=== PATIENT | male | born 1990 | race American Indian/Alaskan Native ===

== ENCOUNTER 2018-02-01 11:04 | Emergency (ER) | payer OTHER ==
[2018-02-01 11:13] VITALS: BP 142/88
[2018-02-01] MEDS ORDERED: TORADOL IM ONE (11:37)
--- NOTE | 2018-02-01 11:47 | Emergency Department Report ---
ED Back Pain/Injury HPI - General Chief Complaint: Fall Stated Complaint: BACK PAIN Time Seen by Provider: 02/01/18 11:21 Source: patient Limitations: No Limitations - History of Present Illness Initial Comments: This is a 27-year-old male nontoxic, well nourished in appearance, no acute signs of distress presents to the ED with c/o of low back pain 1 day. Patient stated he had a about 15 feet fall from a ladder while he was changing and cleaning his gutters. He stated he landed on his sacrum/lumbar spine region. Patient denies any other trauma. Patient denies any head injury, loss consciousness, bladder or bowel stability fever, chills, nausea, vomiting, headache or stiff neck. Patient distressed pain as aching with level of 10. She stated that he had very minimal pain but this morning increase and this is the reason why he came to the ER. Patient denies any radiation of pain. Denies any allergies or significant past medical history MD Complaint: back pain, fall -: Last night Similar Symptoms Previously: No Place: home Radiation: none Severity: mild Severity scale (0 -10): 8 Quality: aching Consistency: constant Improves With: immobilization, supine, sitting upright Worsens With: movement, walking Context: fall Associated Symptoms: denies other symptoms. denies: confusion, weakness, chest pain, numbness, difficulty walking, cough, difficulty urinating, diaphoresis, incontinence, fever/chills, constipation, headaches, abdominal pain, loss of appetite, malaise, nausea/vomiting, rash, seizure, shortness of breath, syncope - Related Data Previous Rx's Medication Instructions Recorded Last Taken Type Ibuprofen [Motrin] 600 mg PO Q6H PRN #20 tablet 02/21/14 Unknown Rx Ibuprofen [Motrin] 800 mg PO Q8HR PRN #21 tablet 09/19/16 Unknown Rx Sulfamethoxazole/Trimethoprim 1 each PO BID #10 tablet 09/19/16 Unknown Rx [Bactrim DS TAB] Cyclobenzaprine [Flexeril] 10 mg PO QHS PRN #7 tablet 02/01/18 Unknown Rx Ibuprofen [Motrin] 600 mg PO Q8H PRN #30 tablet 02/01/18 Unknown Rx Allergies Allergy/AdvReac Type Severity Reaction Status Date / Time No Known Allergies Allergy Unverified 02/21/14 11:32 ED Review of Systems ROS: Stated complaint: BACK PAIN Other details as noted in HPI Constitutional: denies: chills, fever Eyes: denies: eye pain, eye discharge, vision change ENT: denies: ear pain, throat pain Respiratory: denies: cough, shortness of breath, wheezing Cardiovascular: denies: chest pain, palpitations Endocrine: no symptoms reported Gastrointestinal: denies: abdominal pain, nausea, diarrhea Genitourinary: denies: urgency, dysuria Musculoskeletal: back pain. denies: joint swelling, arthralgia Skin: denies: rash, lesions Neurological: denies: headache, weakness, paresthesias Psychiatric: denies: anxiety, depression Hematological/Lymphatic: denies: easy bleeding, easy bruising ED Past Medical Hx - Past Medical History Previous Medical History?: Yes Additional medical history: left shoulder injury - Surgical History Past Surgical History?: No - Social History Smoking Status: Current Every Day Smoker - Medications Home Medications: Home Medications Medication Instructions Recorded Confirmed Last Taken Type Ibuprofen [Motrin] 600 mg PO Q6H PRN #20 tablet 02/21/14 Unknown Rx Ibuprofen [Motrin] 800 mg PO Q8HR PRN #21 tablet 09/19/16 Unknown Rx Sulfamethoxazole/Trimethoprim 1 each PO BID #10 tablet 09/19/16 Unknown Rx [Bactrim DS TAB] Cyclobenzaprine [Flexeril] 10 mg PO QHS PRN #7 tablet 02/01/18 Unknown Rx Ibuprofen [Motrin] 600 mg PO Q8H PRN #30 tablet 02/01/18 Unknown Rx ED Physical Exam - General Limitations: No Limitations General appearance: alert, in no apparent distress - Head Head exam: Present: atraumatic, normocephalic - Eye Eye exam: Present: normal appearance Pupils: Present: normal accommodation - ENT ENT exam: Present: normal exam, mucous membranes moist - Neck Neck exam: Present: normal inspection, full ROM. Absent: tenderness, meningismus, lymphadenopathy - Respiratory Respiratory exam: Present: normal lung sounds bilaterally. Absent: respiratory distress, wheezes, rales, rhonchi, stridor, chest wall tenderness, accessory muscle use, decreased breath sounds, prolonged expiratory - Cardiovascular Cardiovascular Exam: Present: regular rate, normal rhythm, normal heart sounds. Absent: irregular rhythm, systolic murmur, diastolic murmur, rubs, gallop - GI/Abdominal GI/Abdominal exam: Present: soft, normal bowel sounds - Rectal Rectal exam: Present: deferred - Extremities Exam Extremities exam: Present: normal inspection, full ROM, normal capillary refill. Absent: tenderness - Back Exam Back exam: Present: normal inspection, full ROM, paraspinal tenderness (lumbar spinal region). Absent: tenderness, CVA tenderness (R), CVA tenderness (L), muscle spasm, vertebral tenderness, rash noted - Expanded Back Exam Expanded Back exam: Absent: saddle anesthesia Back exam: Negative Straight Leg Raising: Left, Right - Neurological Exam Neurological exam: Present: alert, oriented X3, normal gait - Psychiatric Psychiatric exam: Present: normal affect, normal mood - Skin Skin exam: Present: warm, dry, intact, normal color. Absent: rash ED Course Vital Signs 02/01/18 11:09 Temperature 98.2 F Pulse Rate 70 Respiratory 16 Rate Blood Pressure 142/88 O2 Sat by Pulse 100 Oximetry - Reevaluation(s) Reevaluation #1: 02/01/18 11:49 Patient is speaking in full sentences with no signs of distress noted. ED Medical Decision Making - Medical Decision Making This is a 27-year-old male that presents with low back strain status post fall. Patient is stable and was examined by me. X-ray has been obtained and dictated by the radiologist within normal limits. Patient is notified of the x- ray results, questionable by the patient. Patient received Toradol 30 mg IM in the ED which paced his symptoms as resolved and subsided. There is no signs of any cauda equina syndrome. Patient is discharged with Flexeril and Motrin and was instructed not to operate any machinery while taking Flexeril due to drowsiness. Patient was referred to Follow-up with a primary care doctor in 3- 5 days or if symptoms worsen and continue return to emergency room as soon as possible. At time of discharge, the patient does not seem toxic or ill in appearance. No acute signs of distress noted. Patient agrees to discharge treatment plan of care. No further questions noted by the patient. Critical care attestation.: If time is entered above; I have spent that time in minutes in the direct care of this critically ill patient, excluding procedure time. ED Disposition Clinical Impression: Low back strain Qualifiers: Encounter type: initial encounter Qualified Code(s): S39.012A - Strain of muscle, fascia and tendon of lower back, initial encounter Disposition: DC-01 TO HOME OR SELFCARE Is pt being admited?: No Does the pt Need Aspirin: No Condition: Stable Instructions: Low Back Strain (ED), Ibuprofen (By mouth), Cyclobenzaprine (By mouth) Additional Instructions: Follow-up with a primary care doctor in 3-5 days or if symptoms worsen and continue return to emergency room as soon as possible. Take ibuprofen and Flexeril as prescribed. Do not operate heavy machinery while taking Flexeril due to sedation Prescriptions: Cyclobenzaprine [Flexeril] 10 mg PO QHS PRN #7 tablet PRN Reason: Muscle Spasm Ibuprofen [Motrin] 600 mg PO Q8H PRN #30 tablet PRN Reason: Pain Referrals: PRIMARY CAREMD [Primary Care Provider] - 3-5 Days SHAWN AGUIAR MD [Staff Physician] - 3-5 Days [facility] [Outside] - 3-[address] [facility] [Outside] - 3-5 Days Forms: Work/School Release Form(ED)
--- NOTE | 2018-02-01 12:09 | XRay Report ---
LUMBOSACRAL SPINE, 3 VIEWS: History: Back pain Findings: The vertebral bodies, disk spaces and posterior elements are intact. No compression deformity or malalignment. The SI joints are symmetric and unremarkable. Impression: 1. No evidence for acute injury to the lumbar spine.
[2018-02-01 12:13] LABS: Bilirubin,Urine NEG (Negative); Blood,Urine NEG (Negative); Color,Urine Yellow (Yellow); Protein,Urine <15 mg/dL mg/dL (Negative); Urobilinogen,Urine < 2.0 mg/dL (<2.0)
== END 2018-02-01 12:29 | disposition home or self-care (01) ==
LOC: ED 11:04
DX: S39.012A Strain of muscle, fascia and tendon of lower back, initial encounter (principal); F17.200 Nicotine dependence, unspecified, uncomplicated; W18.30XA Fall on same level, unspecified, initial encounter; Y93.89 Activity, other specified; Y92.89 Other specified places as the place of occurrence of the external cause; Y99.8 Other external cause status
CPT/HCPCS: 72100; 81001; 96372; 99283; J1885

== ENCOUNTER 2019-06-20 14:31 | Emergency (ER) | payer SELFPAY ==
[2019-06-20 15:52] VITALS: BP 140/81
--- NOTE | 2019-06-20 15:58 | Event Note ---
ED Screening Note Date of service: 06/20/19 Time: 15:57 ED Screening Note: 28 y/o male comes in for left hip pain. This initial assessment/diagnostic orders/clinical plan/treatment(s) is/are subject to change based on patients health status, clinical progression and re- assessment by fellow clinical providers in the ED. Further treatment and workup at subsequent clinical providers discretion. Patient/guardian urged not to elope from the ED as their condition may be serious if not clinically assessed and managed. Initial orders include:
[2019-06-20] MEDS ORDERED: PERCOCET 5/325 PO ONE (16:46)
[2019-06-20] MEDS ORDERED: TORADOL IM ONE (16:46)
--- NOTE | 2019-06-20 16:51 | XRay Report ---
HISTORY:left hip pain COMPARISON: None. TECHNIQUE: AP pelvis and lateral left hip FINDINGS: Bones: No fracture or dislocation. Joint spaces: Maintained. Soft tissues: No significant abnormality. Additional findings: None. IMPRESSION: 1. No significant abnormality. Signer Name: Александр Akhtar MD Signed: 06/20/2019 4:47 PM Workstation Name: [id number]
--- NOTE | 2019-06-20 16:56 | Emergency Department Report ---
ED Lower Extremity HPI - General Chief Complaint: Extremity Problem,Nontraumatic Stated Complaint: (L) HIP PAIN Time Seen by Provider: 06/20/19 15:56 Source: patient Mode of arrival: Wheelchair Limitations: No Limitations - History of Present Illness Initial Comments: Mr. Bernal is a 28 yo male who presents with lateral left hip pain. 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 Now pain has been severe since yesterday. Painful to walk. 08/12 without treatment attempted at home. Gradual onset of symptoms. NO radiation. The area is tender to touch. MD Complaint: other (hip pain without trauma) -: Gradual, days(s) (1) Injury: Hip: Left Type of Injury: unknown Severity: severe Severity scale (0 -10): 10 Improves With: nothing Worsens With: weight bearing, palpation Associated Symptoms: unable to bear weight. denies: snap/pop sensation, swelling, numbness, tingling - Related Data Previous Rx's Medication Instructions Recorded Last Taken Type Ibuprofen [Motrin] 600 mg PO Q6H PRN #20 tablet 02/21/14 Unknown Rx Ibuprofen [Motrin] 800 mg PO Q8HR PRN #21 tablet 09/19/16 Unknown Rx Sulfamethoxazole/Trimethoprim 1 each PO BID #10 tablet 09/19/16 Unknown Rx [Bactrim DS TAB] Cyclobenzaprine [Flexeril] 10 mg PO QHS PRN #7 tablet 02/01/18 Unknown Rx Ibuprofen [Motrin] 600 mg PO Q8H PRN #30 tablet 02/01/18 Unknown Rx Sulfamethoxazole/Trimethoprim 1 each PO BID #14 tablet 10/26/18 Unknown Rx [Bactrim DS TAB] Ibuprofen [Motrin] 600 mg PO Q8H PRN #20 tablet 01/22/19 Unknown Rx methOCARBAMOL [Robaxin TAB] 500 mg PO Q6H PRN #12 tablet 01/22/19 Unknown Rx traMADol [Ultram] 50 mg PO Q6HR PRN #12 tablet 01/22/19 Unknown Rx Cyclobenzaprine [Flexeril] 10 mg PO TID PRN #20 tablet 06/20/19 Unknown Rx Ibuprofen [Motrin 800 MG tab] 800 mg PO TID 5 Days #15 tablet 06/20/19 Unknown Rx Allergies Allergy/AdvReac Type Severity Reaction Status Date / Time No Known Allergies Allergy Verified 01/22/19 15:53 ED Review of Systems ROS: Stated complaint: (L) HIP PAIN Other details as noted in HPI Constitutional: denies: fever, malaise Musculoskeletal: arthralgia. denies: back pain ED Past Medical Hx - Past Medical History Previous Medical History?: No Additional medical history: left shoulder injury - Surgical History Past Surgical History?: No - Social History Smoking Status: Current Every Day Smoker Substance Use Type: None - Medications Home Medications: Home Medications Medication Instructions Recorded Confirmed Last Taken Type Ibuprofen [Motrin] 600 mg PO Q6H PRN #20 tablet 02/21/14 Unknown Rx Ibuprofen [Motrin] 800 mg PO Q8HR PRN #21 tablet 09/19/16 Unknown Rx Sulfamethoxazole/Trimethoprim 1 each PO BID #10 tablet 09/19/16 Unknown Rx [Bactrim DS TAB] Cyclobenzaprine [Flexeril] 10 mg PO QHS PRN #7 tablet 02/01/18 Unknown Rx Ibuprofen [Motrin] 600 mg PO Q8H PRN #30 tablet 02/01/18 Unknown Rx Sulfamethoxazole/Trimethoprim 1 each PO BID #14 tablet 10/26/18 Unknown Rx [Bactrim DS TAB] Ibuprofen [Motrin] 600 mg PO Q8H PRN #20 tablet 01/22/19 Unknown Rx methOCARBAMOL [Robaxin TAB] 500 mg PO Q6H PRN #12 tablet 01/22/19 Unknown Rx traMADol [Ultram] 50 mg PO Q6HR PRN #12 tablet 01/22/19 Unknown Rx Cyclobenzaprine [Flexeril] 10 mg PO TID PRN #20 tablet 06/20/19 Unknown Rx Ibuprofen [Motrin 800 MG tab] 800 mg PO TID 5 Days #15 tablet 06/20/19 Unknown Rx ED Physical Exam - General Limitations: No Limitations General appearance: alert, in no apparent distress - Extremities Exam Extremities exam: Present: other (left lateral hip tender to palpation) - Neurological Exam Neurological exam: Present: alert, oriented X3 - Psychiatric Psychiatric exam: Present: normal affect, normal mood - Skin Skin exam: Present: warm, dry, intact, normal color ED Course Vital Signs 06/20/19 15:50 Temperature 98.3 F Pulse Rate 73 Respiratory 18 Rate Blood Pressure 140/81 O2 Sat by Pulse 98 Oximetry ED Lower Extremity MDM - Radiology Data Radiology results: report reviewed, image reviewed - Medical Decision Making left hip pain, clinical impression left hip bursitis. Provided cruthes. Rx: ibuprofen flexeril referred to orthopedic surgeon Critical care attestation.: If time is entered above; I have spent that time in minutes in the direct care of this critically ill patient, excluding procedure time. ED Disposition Clinical Impression: Hip bursitis, left Disposition: DC-01 TO HOME OR SELFCARE Is pt being admited?: No Does the pt Need Aspirin: No Condition: Stable Instructions: Hip Bursitis (ED) Prescriptions: Cyclobenzaprine [Flexeril] 10 mg PO TID PRN #20 tablet PRN Reason: Muscle Spasm Ibuprofen [Motrin 800 MG tab] 800 mg PO TID 5 Days #15 tablet Referrals: TRELL CASTAÑEDA MD [Staff Physician] - 3-5 Days Forms: Work/School Release Form(ED)
== END 2019-06-20 17:11 | disposition home or self-care (01) ==
LOC: ED 14:31
DX: M70.72 Other bursitis of hip, left hip (principal); Y93.9 Activity, unspecified; F17.200 Nicotine dependence, unspecified, uncomplicated; Z79.899 Other long term (current) drug therapy
CPT/HCPCS: 73502; 96372; 99284; J1885

== ENCOUNTER 2021-01-10 16:31 | Emergency (ER) | payer SELFPAY ==
[2021-01-10 17:50] VITALS: BP 146/85
--- NOTE | 2021-01-10 18:03 | Emergency Department Report ---
Chief Complaint: Urogenital-Male Stated Complaint: IRRIATION WHEN URINATING Time Seen by Provider: 01/10/21 18:03 - Exam Vital Signs: Vital Signs 01/10/21 17:49 Temperature 98.4 F Pulse Rate 101 H Respiratory 20 Rate Blood Pressure 146/85 O2 Sat by Pulse 96 Oximetry MSE screening note: Focused history and physical exam performed. Due to findings the following was ordered: ED Disposition for MSE Condition: Stable
--- NOTE | 2021-01-10 18:21 | Emergency Department Report ---
ED Dysuria HPI - HPI Chief Complaint: Urogenital-Male Stated Complaint: IRRIATION WHEN URINATING Time Seen by Provider: 01/10/21 18:03 Duration: 1 week Location of Discomfort: Urethra (dysuria) Severity: Mild Symptoms: Dysuria: Yes (denies penile discharge, lesions/rash, or testicular pain/swelling ), Frequency: Yes, Suprapubic Pain: No, Flank Pain: No, Fever: No, Hematuria: No, Abdominal Pain: No, Previous UTI's: No ED Review of Systems ROS: Stated complaint: IRRIATION WHEN URINATING Other details as noted in HPI Constitutional: denies: chills, fever, malaise Cardiovascular: denies: chest pain Gastrointestinal: denies: abdominal pain, nausea Genitourinary: dysuria, frequency. denies: urgency, hematuria, discharge, testicular pain, testicular mass Musculoskeletal: denies: joint swelling, arthralgia Skin: denies: lesions, change in color Neurological: denies: headache, numbness, paresthesias ED Past Medical Hx - Past Medical History Previous Medical History?: No Additional medical history: left shoulder injury - Surgical History Past Surgical History?: No - Social History Smoking Status: Current Every Day Smoker Substance Use Type: None - Medications Home Medications: Home Medications Medication Instructions Recorded Confirmed Last Taken Type Ibuprofen [Motrin] 600 mg PO Q6H PRN #20 tablet 02/21/14 Unknown Rx Ibuprofen [Motrin] 800 mg PO Q8HR PRN #21 tablet 09/19/16 Unknown Rx Sulfamethoxazole/Trimethoprim 1 each PO BID #10 tablet 09/19/16 Unknown Rx [Bactrim DS TAB] Cyclobenzaprine [Flexeril] 10 mg PO QHS PRN #7 tablet 02/01/18 Unknown Rx Ibuprofen [Motrin] 600 mg PO Q8H PRN #30 tablet 02/01/18 Unknown Rx Sulfamethoxazole/Trimethoprim 1 each PO BID #14 tablet 10/26/18 Unknown Rx [Bactrim DS TAB] Ibuprofen [Motrin] 600 mg PO Q8H PRN #20 tablet 01/22/19 Unknown Rx methOCARBAMOL [Robaxin TAB] 500 mg PO Q6H PRN #12 tablet 01/22/19 Unknown Rx traMADoL [Ultram] 50 mg PO Q6HR PRN #12 tablet 01/22/19 Unknown Rx Cyclobenzaprine [Flexeril] 10 mg PO TID PRN #20 tablet 06/20/19 Unknown Rx Ibuprofen [Motrin 800 MG tab] 800 mg PO TID 5 Days #15 tablet 06/20/19 Unknown Rx Dysuria Exam - Exam General: Vital signs noted. No distress. Alert and acting appropriately. ED Course Vital Signs 01/10/21 17:49 Temperature 98.4 F Pulse Rate 101 H Respiratory 20 Rate Blood Pressure 146/85 O2 Sat by Pulse 96 Oximetry ED Medical Decision Making - Medical Decision Making UA is normal. Gonorrhea and Chlamydia test pending. Recommend patient follow- up with primary care in 3 to 5 days. Also recommend increased water intake. His vitals are normal, he is well-appearing, he is stable for discharge home. Discussed strict return precautions in detail with patient who verbalized understanding. Critical care attestation.: If time is entered above; I have spent that time in minutes in the direct care of this critically ill patient, excluding procedure time. ED Disposition Clinical Impression: Dysuria Disposition: DC-01 TO HOME OR SELFCARE Is pt being admited?: No Condition: Stable Instructions: Chlamydia, Male, Safe Sex, Gonorrhea, Dysuria Referrals: [facility] [Provider Group] - 3-5 Days ED Physical Exam - General Limitations: No Limitations General appearance: alert, in no apparent distress - Head Head exam: Present: atraumatic, normocephalic - Eye Eye exam: Present: normal appearance. Absent: scleral icterus - Respiratory Respiratory exam: Absent: respiratory distress - Cardiovascular Cardiovascular Exam: Present: regular rate, normal rhythm - GI/Abdominal GI/Abdominal exam: Present: soft, normal bowel sounds. Absent: tenderness - Extremities Exam Extremities exam: Present: full ROM - Back Exam Back exam: Present: normal inspection - Neurological Exam Neurological exam: Present: alert, oriented X3, normal gait - Psychiatric Psychiatric exam: Present: normal affect, normal mood - Skin Skin exam: Present: warm, dry, intact, normal color. Absent: rash
[2021-01-10 18:44] LABS: Bilirubin,Urine NEG (Negative); Blood,Urine NEG (Negative); Color,Urine Yellow (Yellow); Mucus,Urine FEW /HPF; Protein,Urine <15 mg/dL mg/dL (Negative); Urobilinogen,Urine < 2.0 mg/dL (<2.0)
== END 2021-01-10 20:08 | disposition home or self-care (01) ==
LOC: ED 16:31
DX: R30.0 Dysuria (principal); F17.200 Nicotine dependence, unspecified, uncomplicated; Z79.899 Other long term (current) drug therapy
CPT/HCPCS: 81001; 99283

== ENCOUNTER 2021-05-18 01:56 | Emergency (ER) | payer SELFPAY ==
[2021-05-18 02:49] VITALS: BP 124/77
[2021-05-18 06:33] LABS: Bilirubin,Urine NEG (Negative); Blood,Urine MOD (Negative); Color,Urine Yellow (Yellow); Mucus,Urine FEW /HPF; Protein,Urine <15 mg/dL mg/dL (Negative); Urobilinogen,Urine < 2.0 mg/dL (<2.0)
[2021-05-18 06:38] LABS: WBC,Urine > 182.0 /HPF (0.0-6.0)
== END 2021-05-18 03:00 | disposition left against medical advice (07) ==
LOC: ED 01:56
DX: R30.9 Painful micturition, unspecified (principal); Z53.21 Procedure and treatment not carried out due to patient leaving prior to being seen by health care provider
CPT/HCPCS: 81001